=== PATIENT | female | born 1930 | race Caucasian/White ===

== ENCOUNTER 2017-05-08 16:00 | Outpatient (RCR) | payer OTHER | END 2017-05-29 | disposition home or self-care (01) | LOC: PTY 16:00 | PROVIDERS: ATTEND Internal Medicine | DX: M35.3 Polymyalgia rheumatica (principal); M54.2 Cervicalgia; G89.29 Other chronic pain; R26.9 Unspecified abnormalities of gait and mobility; I10 Essential (primary) hypertension; I48.91 Unspecified atrial fibrillation ==